=== PATIENT | male | born 1985 | race Caucasian/White ===

== ENCOUNTER 2019-02-26 11:10 | Emergency (ER) | payer SELFPAY ==
[2019-02-26] MEDS: KETOROLAC 60 MG INJ IM (12:00)
== END 2019-02-26 13:30 | disposition home or self-care (01) ==
LOC: FTE 11:10
DX: S20.219A Contusion of unspecified front wall of thorax, initial encounter (principal); F17.210 Nicotine dependence, cigarettes, uncomplicated; V18.0XXA Pedal cycle driver injured in noncollision transport accident in nontraffic accident, initial encounter; Y92.89 Other specified places as the place of occurrence of the external cause
CPT/HCPCS: 71045; 71100; 96372; 99284-25